=== PATIENT | male | born 1980 | race Two or more races ===

== ENCOUNTER 2019-06-25 09:00 | Emergency (ER) | payer OTHER ==
[~2019-06-25] VITALS: Ht 170.2 cm; Wt 86.2 kg
[2019-06-25 09:28] VITALS: BP 147/93
[2019-06-25] MEDS ORDERED: KETOROLAC TROMETH 60MG/2ML VIAL IM ONE (10:00)
[2019-06-25 10:06] LABS: Urine Bacteria NONE SEEN /hpf (None Seen); Urine Blood Negative /uL (Negative); Urine Mucus FEW (None Seen); Urine Specific Gravity 1.035 (1.001-1.035); Urine WBC 1 /hpf (0 - 3)
== END 2019-06-25 10:38 | disposition home or self-care (01) ==
LOC: ER 09:04
DX: S39.012A Strain of muscle, fascia and tendon of lower back, initial encounter (principal); R73.9 Hyperglycemia, unspecified; X50.3XXA Overexertion from repetitive movements, initial encounter; Y93.89 Activity, other specified; Y99.8 Other external cause status; Y92.89 Other specified places as the place of occurrence of the external cause
CPT/HCPCS: 72070; 72100; 81001; 82962; 96372; 99283; J1885